=== PATIENT | female | born 1960 | race Caucasian/White ===

== ENCOUNTER 2023-12-04 05:38 | Day surgery (SDC) | payer MEDICARE, OTHER ==
[2023-11-30 15:00] VITALS: BMI 53.2
--- NOTE | 2023-12-02 02:10 | HP ---
HISTORY AND PHYSICAL DATE OF SURGERY: 12/04/2023. HISTORY OF PRESENT ILLNESS: The patient is a 63-year-old 2, para 2-0-0-2 who presented to the office on referral with postmenopausal bleeding. She had 1 particular episode of heavy vaginal bleeding lasting for approximately 5 days with no other history of bleeding since her early 50s. She does not report any other electric cell tender issues and has not had a recent Pap by her admission. As she was quite uncomfortable with examination, we were unable to perform an endometrial biopsy, she underwent subsequent pelvic ultrasound, which demonstrated an endometrial stripe thickness of 10 mm. Given the thickened endometrium with postmenopausal bleeding and secondary risk factors, she was counseled regarding proceeding to the operating room versus empiric treatment with progesterone, given some of her confounding conditions. She and her daughter have chosen to proceed with surgery and have preoperative surgical clearance. PAST MEDICAL HISTORY: Significant for history of anemia, asthma, liver cirrhosis, diabetes, hypertension, myocardial infarction, and thyroid disease. PAST SURGICAL HISTORY: Significant only for tubal ligation in the distant past. There were no apparent anesthetic concerns. OBSTETRICAL HISTORY: 2, para 2-0-0-2 with 2 term vaginal deliveries without complications. Method of contraception had been tubal ligation. GYNECOLOGIC HISTORY: Confined to history of present illness with recent postmenopausal bleeding as noted above. FAMILY HISTORY: Noncontributory. SOCIAL HISTORY: The patient has a history of smoking, but is not a current smoker and denies any other significant social concerns. CURRENT MEDICATIONS: Include, 1. Albuterol metered dose inhaler as needed. 2. Jardiance 25 mg daily. 3. Lisinopril 2.5 mg daily. 4. Omeprazole 20 mg daily. 5. Simvastatin 20 mg daily. 6. Symbicort inhaler twice daily. ALLERGIES: Vitamin B and vitamin D apparently caused swelling. REVIEW OF SYSTEMS: Confined to history of present illness. PHYSICAL EXAMINATION: VITAL SIGNS: Stable. The patient is afebrile. GENERAL: This is a well-developed, well-nourished, morbidly obese white female, in no acute distress. HEART: Regular rhythm and rate without murmur. LUNGS: Clear to auscultation bilaterally in all villareal. ABDOMEN: Obese, nondistended, has normoactive bowel sounds, soft, nontender, without any apparent masses. PELVIC: Examination demonstrates normal external genitalia and BUS with normal vaginal mucosa and cervix to palpation. There is no cervical motion tenderness. Uterus is mid plane, atrophic in size, mobile, nontender, normal in shape, though the examination is limited by the patient's habitus. ASSESSMENT AND PLAN: Postmenopausal bleeding with a thickened endometrial stripe: We discussed empiric treatment with progesterone, given her potential surgical risks versus proceeding with hysteroscopy with D and C. The patient and her daughter have opted to proceed with hysteroscopy with D and C. Medical clearance has been provided. The risks and complications of the procedures have been thoroughly discussed including the risk for bleeding, bleeding requiring transfusion, infection, and injury to local structures to include uterine perforation and subsequent Asherman syndrome. We also discussed her medical risk, given the patient's other medical conditions. The patient and her daughter both voiced understanding to these concerns and have agreed to proceed. MMODL / IJN: [id number] /
[~2023-12-04 05:38] MED LIST: Pre Op ABX Message 1 EACH MISC MISCELLANE ONE
[2023-12-04] MEDS ORDERED: LIDOCAINE 1% (10MG/ML) FOR IV START INTRADERMA PRN (05:56)
[2023-12-04] MEDS ORDERED: fentaNYL (PF) 50 MCG/ML 2 ML AMP IVP PRN (05:56)
[2023-12-04 06:58] LABS: Glucose,Whole Blood 142 mg/dL (70-110)
[2023-12-04] MEDS: IV FLUID CONTINUATION 1,000 ML IV ONE (07:06)
[2023-12-04] MEDS: LACTATED RINGERS 1,000 ML IV SCH (07:09)
[2023-12-04] MEDS: ONDANSETRON 4 MG/2 ML VIAL IVP ONE (07:10)
[2023-12-04] MEDS: DEXAMETHASONE SOD PHOSPHATE 4 MG/ML 1 ML VIAL IV ONE (07:10)
[2023-12-04] MEDS: MIDAZOLAM 2 MG/2 ML VIAL IV PRN (07:10)
[2023-12-04] MEDS ORDERED: LIDOCAINE 1% INJ 10MG/ML (20 ML MDV) ONE (08:47)
[2023-12-04] MEDS ORDERED: PROPOFOL 10 MG/ML 20 ML VIAL IV ONE (08:47)
[2023-12-04] MEDS ORDERED: SUCCINYLCHOLINE CHLORIDE 200 MG/10 ML VIAL IV ONE (08:47)
[2023-12-04] MEDS ORDERED: fentaNYL (PF) 50 MCG/ML 2 ML AMP ONE (08:47)
[2023-12-04] MEDS ORDERED: SIMETHICONE 80 MG CHEWABLE PO PRN (09:26)
[2023-12-04] MEDS ORDERED: ONDANSETRON 4 MG/2 ML VIAL IVP PRN (09:26)
[2023-12-04] MEDS ORDERED: diphenhydrAMINE 50 MG/ML 1 ML VIAL IVP PRN (09:26)
[2023-12-04] MEDS ORDERED: METOCLOPRAMIDE 5 MG/ML 2 ML VIAL IVP PRN (09:26)
[2023-12-04] MEDS ORDERED: IBUPROFEN 600 MG TAB PO PRN (09:26)
[2023-12-04] MEDS ORDERED: KETOROLAC 15 MG/ML 1 ML VIAL IVP PRN (09:26)
[2023-12-04] MEDS ORDERED: Acetaminophen-Codeine 300-30mg TAB PO PRN ×2 (09:26)
[2023-12-04] MEDS ORDERED: LACTATED RINGERS 1,000 ML IV SCH (09:30)
[2023-12-04 09:33] VITALS: TEMP 98
--- NOTE | 2023-12-04 09:35 | P.OP ---
Date of Procedure: 12/04/23 Preoperative Diagnosis: #1. Postmenopausal bleeding #2. Thickened endometrial stripe #3. Morbid obesity Postoperative Diagnosis: Same Procedure(s) Performed: #1. Diagnostic hysteroscopy #2. Dilation and curettage Anesthesia: [facility] Surgeon: Masoud Stapleton Estimated Blood Loss (ml): 5 IV fluids (ml): 400 Urine output (ml): 25 Pathology: other (Endometrial curettings, possible endometrial polyp) Condition: stable Disposition: PACU Operative Findings: Preoperative pelvic examination demonstrated a roughly 5-week midplane mobile normal shaped uterus with normal adnexa bilaterally. Exam is significantly limited secondary to abdominal habitus. Intraoperatively, visualization of the cervix and use of the hysteroscope was made significantly more difficult secondary to the level of obesity and the depth of the cervix in the pelvis. Ultimately, it was felt that the uterus was completely sampled and there was some polypoid tissue seen using the hysteroscope and appeared to have been removed with curettage though a polyp forceps failed to demonstrate any tissue. The uterus sounded to approximately 9 cm. Description of Procedure: The patient was prepped and draped in usual fashion after general endotracheal anesthesia was administered by the anesthesiologist. A weighted speculum was placed and the cervix could not be visualized. It was replaced with a right angle retractor both anteriorly and posteriorly at which time the cervix could ultimately be visualized and the anterior lip grasped with a single-tooth tenaculum. The bladder was then drained of approximate 25 cc of clear amparo urine. The uterine sound was introduced and initially sounded to 7 cm but later sounded to approximately 9 cm after dilation. Serial dilation was carried out to admit the diagnostic hysteroscope which again was difficult to use secondary to the angles of the vagina and redundant perineal tissue. It was introduced into the endometrial cavity and the cavity distended with normal saline. There did appear to be polypoid tissue near the fundus. The tubal ostia were not seen secondary to the depth in the pelvis. After what was thought to be adequate hysteroscopy, the scope was set aside in favor of a medium sharp curette. Thorough and circumferential curettage was carried out onto a Telfa placed in the vagina and there was a moderate amount of tissue returned with what appeared to be some polypoid tissue as well. The typical gritty texture was encountered throughout. A polyp forceps was then introduced and no tissue was noted. All instrumentation was then removed and there was no ongoing bleeding from either the cervix and any appreciable amount nor from the tenaculum site. Estimated blood loss for the case was approximately 5 mL or less. There were no complications. All sponge, instrument, and needle counts were correct. The patient tolerated the procedure well and proceeded to the recovery room in stable condition.
[2023-12-04] MEDS: HYDROmorphone 0.5 MG/0.5 ML SYRINGE IVP PRN (09:54)
[2023-12-04 10:08] VITALS: RESP 16
[2023-12-04 10:18] LABS: Glucose,Whole Blood 151 mg/dL (70-110)
[2023-12-04 10:20] VITALS: BP 128/72; PULSE 70
[2023-12-05] MEDS ORDERED: ACETAMINOPHEN TAB 325 MG TAB PO PRN (09:29)
== END 2023-12-04 11:26 | disposition home or self-care (01) ==
LOC: OR 05:38
PROVIDERS: ATTEND Obstetrics & Gynecology
DX: N85.00 Endometrial hyperplasia, unspecified (principal); N85.6 Intrauterine synechiae; K74.60 Unspecified cirrhosis of liver; J45.909 Unspecified asthma, uncomplicated; I25.2 Old myocardial infarction; I10 Essential (primary) hypertension; E66.01 Morbid (severe) obesity due to excess calories; E11.9 Type 2 diabetes mellitus without complications; E07.9 Disorder of thyroid, unspecified; Z79.51 Long term (current) use of inhaled steroids; Z79.899 Other long term (current) drug therapy; Z87.891 Personal history of nicotine dependence; Z79.890 Hormone replacement therapy; Z98.51 Tubal ligation status
CPT/HCPCS: 88305; 58558; J2250; J0330; J1100; J2405; J2001; J3010; J2704; J1170

== ENCOUNTER 2024-07-26 09:38 | Day surgery (SDC) | payer MEDICARE, OTHER ==
[2024-07-25 09:11] VITALS: BMI 54.9
[2024-07-26 11:34] VITALS: RESP 18; TEMP 97.9
[2024-07-26] MEDS: IV FLUID CONTINUATION 1,000 ML IV ONE (11:46)
[2024-07-26] MEDS: LACTATED RINGERS 1,000 ML IV SCH (11:47)
[2024-07-26 11:54] LABS: Glucose,Whole Blood 145 mg/dL (70-110)
[2024-07-26] MEDS ORDERED: PROPOFOL 10 MG/ML 20 ML VIAL IV ONE (12:23)
[2024-07-26] MEDS ORDERED: LIDOCAINE 1% INJ 10MG/ML (20 ML MDV) ONE (12:23)
--- NOTE | 2024-07-26 12:32 | P.PCN ---
Date of Procedure: 07/26/24 Procedure(s) Performed: BRIEF HISTORY: Patient is a 63-year-old, pleasant, white female scheduled for an upper endoscopy as a part of screening for esophageal varices. She was diagnosed with nonalcoholic fatty liver disease with cirrhosis of the liver in 2021.. PROCEDURE PERFORMED: Esophagogastroduodenoscopy. PREOPERATIVE DIAGNOSIS: History of liver cirrhosis screening for esophageal varices. IV sedation per anesthesia. PROCEDURE: After informed consent was obtained, the patient was brought into the endoscopy unit. IV sedation was administered by Anesthesia under continuous monitoring. Initially the Olympus GIF-140 video endoscope was inserted into the mouth. Esophagus intubated without any difficulty. It was gradually advanced into the stomach and duodenum and carefully examined. The bulb and the second part of the duodenum appeared normal. The scope at this time was withdrawn to the stomach, adequately insufflated with air, and upon careful examination, mucosa of the antrum, body, cardia and the fundus appeared normal. The scope was then withdrawn into the esophagus. The GE junction was located at 39 cm from the incisors. There is small mid and distal esophageal varices identified with no red peter connell noted. The rest of the esophagus appeared normal. There were no erosions or ulcerations seen and the patient tolerated the procedure well. IMPRESSION: 1. Small mid and distal esophageal varices with no red peter connell 2. No evidence of gastric varices. RECOMMENDATIONS: The findings of this examination were discussed with the patient as well as her family. She was advised to follow-up in the office and she will be started on nonselective beta-christopher for primary prevention of esophageal variceal bleed. Recommend a repeat upper endoscopy in 2 years to follow-up esophageal varices..
[2024-07-26 12:52] VITALS: BP 159/63; PULSE 77
== END 2024-07-26 13:08 | disposition home or self-care (01) ==
LOC: ORWHC2ENDO 09:38
PROVIDERS: ATTEND Internal Medicine Gastroenterology
DX: K74.60 Unspecified cirrhosis of liver (principal); I85.10 Secondary esophageal varices without bleeding
CPT/HCPCS: 43235; J2003; J2704

== ENCOUNTER → 2024-08-05 | Outpatient (CLI) | payer MEDICARE, OTHER ==
--- NOTE | 2024-08-05 14:18 | US ---
EXAMINATION TYPE: US pelvis complete transvag DATE OF EXAM: 08/05/2024 COMPARISON: NONE CLINICAL INDICATION: Female, 63 years old with history of C54.1 MALIGNANT NEOPLASM OF ENDOMETRIUM; IU D location. IUD x a couple months. TECHNIQUE: Transvaginal (TV) and Transabdominal (TA) . Transabdominal grayscale sonographic images of the pelvis were acquired. Transvaginal sonographic im ages were medically necessary to better assess the following anatomy: endometrium Doppler imaging: Not performed. Transvaginal exam limited due to pt unable to tolerate pressure. TA limited due to empty bladder FINDINGS: Date of LMP: unknown EXAM MEASUREMENTS: Uterus: 8.3 x 0.5 cm Endometrial Stripe: 0.5 cm Right Ovary: not seen due to atrophy Left Ovary: not seen due to atrophy 1. Uterus: Anteverted limited due to body habitus. located in endometrium, possibly in lower uteri ne segment 2. Endometrium: wnl 3. Right Ovary: not seen due to atrophy 4. Left Ovary: not seen due to atrophy 5. Bilateral Adnexa: wnl 6. Posterior cul-de-sac: wnl Anteverted uterus poor visualization of IUD which may be present within the lower uterine segment. En dometrium is within normal limits. Both ovaries are nonvisualized due to atrophy. No free fluid. IMPRESSION: 1. Poor visualization of IUD which may be present within the lower uterine segment. 2. Endometrium is normal thickness. 3. Both ovaries are nonvisualized due to atrophy. [facility], , 08/05/2024 2:16 PM
== END | disposition home or self-care (01) ==
LOC: RADUSWWP 13:20
PROVIDERS: ATTEND Obstetrics & Gynecology
DX: C54.1 Malignant neoplasm of endometrium (principal); N83.312 Acquired atrophy of left ovary; N83.311 Acquired atrophy of right ovary
CPT/HCPCS: 76830; 76856

== ENCOUNTER → 2024-09-08 | Outpatient (CLI) | payer MEDICARE, OTHER ==
--- NOTE | 2024-09-08 12:57 | CT ---
EXAMINATION TYPE: CT abdomen pelvis wo con DATE OF EXAM: 09/08/2024 COMPARISON: NONE CLINICAL INDICATION: Female, 64 years old with history of N85.02 ENDOMETRIAL INTRAEPITHELIAL NEOPLASI A, endometrium problems. and IUD check. pain and weakness after IUD placement x few months ago., TECHNIQUE: CT scan of the abdomen and pelvis is performed without contrast, patient injected with mL of ., (none if empty) Oral contrast used: with Oral Contrast (none if empty) CT DLP: 3019.1 mGycm, Automated exposure control for dose reduction was used. FINDINGS: Within the limitations of a noncontrast study, the following observations are made LUNG BASES: Mild peripheral bibasilar linear scarring and/or atelectasis. LIVER/GB: Liver is heterogeneously hypodense lobulated peripheral contour consistent with cirrhosis. Gallbladder is distended margins without surrounding fat stranding or fluid PANCREAS: No significant abnormality is seen. SPLEEN: Splenomegaly is present measuring 19.3 cm long axis coronal image 60. Punctate calcifications consistent with product of old granulomatous disease are present. ADRENALS: No significant abnormality is seen. KIDNEYS: Some cortical thinning and diminished size to both kidneys. There is incidental 5.4 cm thin- walled cyst laterally from the lower pole of the right kidney. No hydronephrosis seen bilaterally. BOWEL: Oral contrast only reaches distal small bowel loops. There is no abnormal small or large bowel dilatation. Normal appearing appendix from the cecum is seen. UTERUS/ADNEXA: Anteverted uterus with central metallic IUD. Right ovary has a 2.9 cm thin-walled cyst or cystic lesion axial image 64. This can be better evaluated with pelvic ultrasound if desired. No free fluid in the pelvis. LYMPH NODES: No greater than 1cm abdominal or pelvic lymph nodes are appreciated. OSSEOUS STRUCTURES: No significant abnormality is seen. OTHER: Moderate peripheral calcified plaque of the aorta extends into branch vessels.. IMPRESSION: 1. Cirrhotic liver with evidence of underlying portal hypertension as there is splenomegaly present. 2. No suspicious pelvic adenopathy. [facility], , 09/08/2024 12:55 PM
== END | disposition home or self-care (01) ==
LOC: RADCTMAIN 10:03
PROVIDERS: ATTEND Obstetrics & Gynecology
DX: N85.02 Endometrial intraepithelial neoplasia [EIN] (principal); K74.60 Unspecified cirrhosis of liver; K76.6 Portal hypertension; R16.1 Splenomegaly, not elsewhere classified
CPT/HCPCS: 74176